=== PATIENT | male | born 1985 | race Caucasian/White ===

== ENCOUNTER 2023-02-28 02:54 | Emergency (ER) | payer SELFPAY ==
[~2023-02-28] VITALS: Ht 190.5 cm; Wt 65.8 kg
[2023-02-28 03:00] VITALS: BP_SYST 95; PULSE 68; RESP 16; TEMP 97.3; O2SAT 98
[2023-02-28] MEDS ORDERED: DIPHTH,PERTUSS(ACELL),TET VAC 0.5 ML VIAL (Tdap) I.M. ONE (04:15)
[2023-02-28 04:32] VITALS: BP_SYST 95; PULSE 68; RESP 16; TEMP 97.3; O2SAT 98
== END 2023-02-28 04:32 | disposition home or self-care (01) ==
LOC: SED 02:54
DX: S61.232A Puncture wound without foreign body of right middle finger without damage to nail, initial encounter (principal); Z88.2 Allergy status to sulfonamides; Z79.899 Other long term (current) drug therapy; X58.XXXA Exposure to other specified factors, initial encounter; Y93.89 Activity, other specified; Y92.89 Other specified places as the place of occurrence of the external cause; Y99.8 Other external cause status
CPT/HCPCS: 90715; 99283